=== PATIENT | female | born 2000 ===

== ENCOUNTER 2022-02-05 10:58 | Inpatient (IN) | payer OTHER ==
[2022-02-05 12:33] LABS: BILIRUBIN NEGATIVE (NEGATIVE); BLOOD TRACE-INTACT Ery/uL (NEGATIVE); CLARITY CLEAR (CLEAR); COLOR YELLOW (YELLOW); GLUCOSE (U) NORMAL (NORMAL); LEUKOCYTES TRACE Leu/uL (NEGATIVE); NITRITE NEGATIVE (NEGATIVE); PROTEIN NEGATIVE (NEGATIVE); SPECIFIC GRAVITY 1.015 (1.001-1.030); UROBILINOGEN 0.2 mg/dL (0.2-1.0)
[2022-02-05 12:39] LABS: AMPHETAMINES NEGATIVE (NEGATIVE); BARBITURATES NEGATIVE (NEGATIVE); ECSTASY (MDMA) NEGATIVE (NEGATIVE); MARIJUANA (THC) NEGATIVE (NEGATIVE); METHADONE NEGATIVE (NEGATIVE); OPIATES NEGATIVE (NEGATIVE); OXYCODONE NEGATIVE (NEGATIVE)
[2022-02-05 12:43] LABS: SQUAMOUS EPITHELIAL CELLS 20-50
[2022-02-05 12:44] LABS: BACTERIA 1+
[2022-02-05 13:46] LABS: HCT 39.1 % (37.0-47.0); HGB 13.5 g/dl (12.5-16.0); MCHC 34.5 g/dL (32.0-36.0); MCV 89.7 fL (78.0-100.0); MPV 10.7 fL (6.0-9.5); RBC 4.36 M/uL (4.20-5.40); RDW 14.2 % (11.5-14.0); WBC 11.9 K/uL (4.0-10.5)
[2022-02-06 18:56] LABS: HCT 33.9 % (37.0-47.0); HGB 11.4 g/dl (12.5-16.0); MCHC 33.6 g/dL (32.0-36.0); MCV 92.1 fL (78.0-100.0); MPV 10.1 fL (6.0-9.5); RBC 3.68 M/uL (4.20-5.40); RDW 14.5 % (11.5-14.0); WBC 14.1 K/uL (4.0-10.5)
== END 2022-02-07 19:06 | disposition home or self-care (01) | DRG 807 ==
LOC: FOD 10:58 → FOB 10:58 → FOD 13:13 → FOB 13:14
PROVIDERS: ADMIT Specialist
PROC: 10E0XZZ Delivery of Products of Conception, External Approach (ICD-10-PCS; principal; 2022-02-05)
PROC: 0HQ9XZZ Repair Perineum Skin, External Approach (ICD-10-PCS; 2022-02-05)
DX: O42.02 Full-term premature rupture of membranes, onset of labor within 24 hours of rupture (principal); Z37.0 Single live birth; O99.02 Anemia complicating childbirth; O70.0 First degree perineal laceration during delivery; Z3A.39 39 weeks gestation of pregnancy
CPT/HCPCS: 36415; 80305; 81001; 84112; 86850; 86900; 86901; 90686; J2001; J2405; J7120